=== PATIENT | male | born 1975 | race Caucasian/White ===

== ENCOUNTER 2018-10-06 21:05 | Emergency (ER) | payer OTHER ==
[2018-10-06 21:20] VITALS: BP 151/100
[2018-10-06] MEDS ORDERED: Sodium Chloride 0.9% 10 ML Syringe FLUSH PRN (21:41)
[2018-10-06] MEDS ORDERED: Sodium Chloride 0.9% 1,000 ML IV STA (21:41)
[2018-10-06] MEDS ORDERED: Iopamidol 612 MG/ML 100 ML Bottle IVPUSH ONE (22:49)
--- NOTE | 2018-10-06 22:58 | EDM.PDOC ---
ED HPI GENERAL MEDICAL PROBLEM - General Chief Complaint: Abdominal Pain Stated Complaint: LOWER ABDOMINAL PAIN CENTER ELEVATED HEART RATE Time Seen by Provider: 10/06/18 21:26 Source of Information: Reports: Patient History Limitations: Reports: No Limitations - History of Present Illness INITIAL COMMENTS - FREE TEXT/NARRATIVE: The patient presents with lower abdominal pain. The pain is sharp. He also has some pain with urination and frequency. He has no nausea, vomiting or diarrhea. He has no fever, chills, cough, chest pain or shortness of breath. He still has his gallbladder and appendix. This pain started today. He does not have much of an appetite but he can eat and drink. Onset: Gradual Duration: Hour(s): Location: Reports: Abdomen Quality: Reports: Sharp Severity: Moderate Improves with: Reports: None Worsens with: Reports: None Associated Symptoms: Denies: Chest Pain, Cough, Fever/Chills, Headaches, Nausea/ Vomiting, Shortness of Breath lower mid abdomen Pain Score (Numeric/FACES): 3 - Related Data Allergies Allergy/AdvReac Type Severity Reaction Status Date / Time codeine Allergy Other Verified 10/06/18 21:20 Penicillins Allergy Other Verified 10/06/18 21:20 venom-wasp [wasp venom] Allergy Other Verified 10/06/18 21:20 Home Meds: Home Meds Sertraline [Zoloft] 100 mg PO DAILY 03/01/16 [History] Ciprofloxacin [Ciprofloxacin HCl] 500 mg PO BID #14 tab 10/06/18 [Rx] EPINEPHrine [Epipen 2-Fuad] 1 unit IM ASDIRECTED PRN 10/06/18 [History] metroNIDAZOLE [Flagyl] 500 mg PO Q8H #21 tab 10/06/18 [Rx] Past Medical History - Past Health History Medical/Surgical History: Denies Medical/Surgical History Psychiatric History: Reports: Anxiety - Past Surgical History HEENT Surgical History: Reports: Oral Surgery Social & Family History - Family History Family Medical History: Noncontributory - Tobacco Use Smoking Status *Q: Light Tobacco Smoker Years of Tobacco use: 12 Packs/Tins Daily: 0.1 - Caffeine Use Caffeine Use: Reports: Coffee - Recreational Drug Use Recreational Drug Use: No - Living Situation & Occupation Living situation: Reports: , with Family Occupation: Employed ED ROS GENERAL - Review of Systems Review Of Systems: See Below Constitutional: Reports: No Symptoms HEENT: Reports: No Symptoms Respiratory: Reports: No Symptoms Cardiovascular: Reports: No Symptoms Endocrine: Reports: No Symptoms GI/Abdominal: Reports: Abdominal Pain. Denies: Diarrhea, Nausea, Vomiting : Reports: Dysuria, Frequency ED EXAM, GI/ABD - Physical Exam Exam: See Below Exam Limited By: No Limitations General Appearance: Alert, No Apparent Distress Ears: Normal External Exam Nose: Normal Inspection Head: Atraumatic, Normocephalic Neck: Normal Inspection Respiratory/Chest: No Respiratory Distress, Lungs Clear, Normal Breath Sounds Cardiovascular: Regular Rate, Rhythm, No Edema, No Murmur GI/Abdominal Exam: Soft, No Organomegaly, No Mass, Tender (Moderate tenderness to the LLQ and suprapubic area) Course - Vital Signs Last Recorded V/S: Last Vital Signs Temp 98 F 10/06/18 21:10 Pulse 115 H 10/06/18 21:10 Resp 18 10/06/18 21:10 BP 151/100 H 10/06/18 21:10 Pulse Ox 96 10/06/18 21:10 - Orders/Labs/Meds Orders: Active Orders 24 hr Category Date Time Status Peripheral IV Care [RC] . DIRECTED Care 10/06/18 21:41 Active Abdomen Pelvis w Cont [CT] Stat Exams 10/06/18 21:41 Taken Sodium Chloride 0.9% [Saline Flush] Med 10/06/18 21:41 Active 10 ml FLUSH ASDIRECTED PRN levoFLOXacin [Levaquin] Med 10/06/18 23:54 Once 500 mg PO ONETIME ONE metroNIDAZOLE [Flagyl] Med 10/06/18 23:54 Once 500 mg PO ONETIME ONE Peripheral IV Insertion Adult [OM.PC] Stat Oth 10/06/18 21:41 Ordered Medication Orders Sodium Chloride (Saline Flush) 10 ml FLUSH ASDIRECTED PRN PRN Reason: Keep Vein Open Last Admin: 10/06/18 21:55 Dose: 10 ml Labs: Laboratory Tests 10/06/18 10/06/18 10/06/18 Range/Units 21:41 21:52 21:52 WBC 11.50 H (4.23-9.07) K/mm3 RBC 5.23 (4.63-6.08) M/mm3 Hgb 16.5 (13.7-17.5) gm/L Hct 46.6 (40.1-51.0) % MCV 89.1 (79.0-92.2) fl MCH 31.5 (25.7-32.2) pg MCHC 35.4 (32.2-35.5) g/dl RDW Std Deviation 39.9 (35.1-43.9) fL Plt Count 213 (163-337) K/mm3 MPV 9.1 L (9.4-12.3) fl Neut % (Auto) 71.9 H (34.0-67.9) % Lymph % (Auto) 18.2 L (21.8-53.1) % [place] % (Auto) 9.1 (5.3-12.2) % Eos % (Auto) 0.3 L (0.8-7.0) Baso % (Auto) 0.2 (0.1-1.2) % Neut # (Auto) 8.27 H (1.78-5.38) K/mm3 Lymph # (Auto) 2.09 (1.32-3.57) K/mm3 [place] # (Auto) 1.05 H (0.30-0.82) K/mm3 Eos # (Auto) 0.04 (0.04-0.54) K/mm3 Baso # (Auto) 0.02 (0.01-0.08) K/mm3 Sodium 140 (136-145) mEq/L Potassium 3.5 (3.5-5.1) mEq/L Chloride 102 (98-107) mEq/L Carbon Dioxide 26 (21-32) mEq/L Anion Gap 15.5 H (5-15) BUN 13 (7-18) mg/dL Creatinine 1.2 (0.7-1.3) mg/dL Est Cr Clr Drug Dosing 95.84 mL/min Estimated GFR (MDRD) > 60 (>60) mL/min BUN/Creatinine Ratio 10.8 L (14-18) Glucose 139 H (74-106) mg/dL Calcium 9.2 (8.5-10.1) mg/dL Total Bilirubin 1.6 H (0.2-1.0) mg/dL AST 22 (15-37) U/L ALT 87 H (16-63) U/L Alkaline Phosphatase 79 (46-116) U/L C-Reactive Protein 8.1 H* (<1.0) mg/dL Total Protein 7.7 (6.4-8.2) g/dl Albumin 3.8 (3.4-5.0) g/dl Globulin 3.9 gm/dL Albumin/Globulin Ratio 1.0 (1-2) Lipase 93 (73-393) U/L Urine Color Donna H (Yellow) Urine Appearance Slt cloudy H (Clear) Urine pH 6.5 (5.0-8.0) Ur Specific [place] 1.020 (1.005-1.030) Urine Protein Trace H (Negative) Urine Glucose (UA) Negative (Negative) Urine Ketones Negative (Negative) Urine Occult Blood Negative (Negative) Urine Nitrite Negative (Negative) Urine Bilirubin Negative (Negative) Urine Urobilinogen 1.0 (0.2-1.0) Ur Leukocyte Esterase Negative (Negative) Urine RBC 0-5 (0-5) /hpf Urine WBC 0-5 (0-5) /hpf Ur Epithelial Cells 0-5 (0-5) /hpf Urine Bacteria Few (FEW) /hpf Urine Mucus Moderate H (FEW) /hpf Meds: Medications Generic Name Dose Route Start Last Admin Trade Name Freq PRN Reason Stop Dose Admin Sodium Chloride 10 ml 10/06/18 21:41 10/06/18 21:55 Saline Flush FLUSH 10 ml ASDIRECTED PRN Administration Keep Vein Open Discontinued Medications Generic Name Dose Route Start Last Admin Trade Name Freq PRN Reason Stop Dose Admin Sodium Chloride 1,000 mls @ 1,000 mls/hr 10/06/18 21:41 10/06/18 21:55 Normal Saline IV 10/06/18 22:40 1,000 mls/hr .BOLUS STA Administration Iopamidol 100 ml 10/06/18 22:49 10/06/18 23:03 Isovue-300 (61%) IVPUSH 10/06/18 22:50 100 ml ONETIME ONE Administration - Re-Assessments/Exams Free Text/Narrative Re-Assessment/Exam: 10/06/18 23:11 I ordered an IV NS 1L bolus, labs, UA and a CT of his abdomen and pelvis. 10/06/18 23:47 His WBC was elevated at 11.5. His anion gap was slightly elevated at 15.5. His glucose was elevated at 139. His total bili was elevated at 1.6. His ALT was elevated at 87. His CRP was elevated at 8.1. His lipase is normal. His UA shows no UTI. His CT shows uncomplicated sigmoid colon diverticulitis. He is allergic to penicillin so I will give flagyl and cipro. I will give him a dose of flagyl her and a dose of levaquin. Departure - Departure Time of Disposition: 23:55 Disposition: Home, Self-Care 01 Condition: Good Clinical Impression: Diverticulitis - Discharge Information *PRESCRIPTION DRUG MONITORING PROGRAM REVIEWED*: Not Applicable *COPY OF PRESCRIPTION DRUG MONITORING REPORT IN PATIENT LONNIE: Not Applicable Prescriptions: Ciprofloxacin [Ciprofloxacin HCl] 500 mg PO BID #14 tab metroNIDAZOLE [Flagyl] 500 mg PO Q8H #21 tab Referrals: PCP,None [Primary Care Provider] - Gil Ewing PA-C [Physician Anesthesiology Teacher] - 1 Week Forms: ED Department Discharge Additional Instructions: Take the flagyl 3 times per day for 7 days. Avoid alcohol when taking this medication. It can make you sick. Take the cipro 2 times per day for 7 days. Avoid any heavy lifting or running. This medication can affect tendons. Take tylenol or motrin for pain. Please return if you are worse. - My Orders Last 24 Hours: My Active Orders 10/06/18 21:41 Peripheral IV Care [RC] . DIRECTED Abdomen Pelvis w Cont [CT] Stat Sodium Chloride 0.9% [Saline Flush] 10 ml FLUSH ASDIRECTED PRN Peripheral IV Insertion Adult [OM.PC] Stat 10/06/18 23:54 levoFLOXacin [Levaquin] 500 mg PO ONETIME ONE metroNIDAZOLE [Flagyl] 500 mg PO ONETIME ONE - Assessment/Plan Last 24 Hours: My Active Orders 10/06/18 21:41 Peripheral IV Care [RC] . DIRECTED Abdomen Pelvis w Cont [CT] Stat Sodium Chloride 0.9% [Saline Flush] 10 ml FLUSH ASDIRECTED PRN Peripheral IV Insertion Adult [OM.PC] Stat 10/06/18 23:54 levoFLOXacin [Levaquin] 500 mg PO ONETIME ONE metroNIDAZOLE [Flagyl] 500 mg PO ONETIME ONE
[2018-10-06] MEDS ORDERED: Levofloxacin 500 MG Tab PO ONE (23:54)
[2018-10-06] MEDS ORDERED: metroNIDAZOLE 500 MG Tab PO ONE (23:54)
--- NOTE | 2018-10-07 07:13 | CT ---
CT abdomen and pelvis Technique: Multiple axial sections were obtained from above the dome of the diaphragm inferiorly through the pubic symphysis. Intravenous and oral contrast was utilized. Delayed images were obtained through the bladder. Comparison: No prior abdominal imaging. Findings: Inflammatory change is identified around the sigmoid colon. Diverticuli are seen in this area and findings are felt compatible with diverticulitis. Small portion of the visualized lung bases are clear. Liver shows evidence of fatty infiltration. Spleen appears within normal limits. Adrenal glands show no nodule. Kidneys show symmetric contrast enhancement without hydronephrosis or mass. Pancreas appears within normal limits. Gallbladder contains no calcified gallstones. Aorta shows no aneurysm. No retroperitoneal adenopathy or mesenteric abnormalities are seen. No pelvic mass or adenopathy is seen. Delayed images show contrast within the distal ureters and within the bladder. Bone window settings were reviewed which show mild scattered degenerative change within the spine. Small fat-containing inguinal hernias are seen on both sides. Impression: 1. Findings compatible with sigmoid diverticulitis. 2. Other incidental findings. Diagnostic code #3 I agree with preliminary report from [facility], finalized on 10/07/18, 12:19 AM Central Time
== END 2018-10-07 00:07 | disposition home or self-care (01) ==
LOC: JD.ED 21:05
DX: K57.32 Diverticulitis of large intestine without perforation or abscess without bleeding (principal); F41.9 Anxiety disorder, unspecified; F17.210 Nicotine dependence, cigarettes, uncomplicated; Z98.890 Other specified postprocedural states; Z88.0 Allergy status to penicillin; Z88.1 Allergy status to other antibiotic agents; Z91.030 Bee allergy status
CPT/HCPCS: 36415; 74177; 80053; 81001; 83690; 85025; 86140; 96360; 99284; A9270; J7040; Q9967

== ENCOUNTER 2022-07-10 10:09 | Day surgery (SDC) | payer OTHER ==
[~2022-07-10 10:09] MED LIST: EPINEPHrine 1 MG/ML 30 ML MDV IRR SCH; Lactated Ringers 1,000 ML IV SCH; Lidocaine 1% 2 ML ONE; Lidocaine 1%/Sod Bicarbonate in NS 8.4% 1 ML Syringe IDERM PRN; Ropivacaine 0.5% 5 MG/ML 30 ML SDV ONE; Sodium Chloride 0.9% 10 ML Syringe FLUSH PRN; Sodium Chloride 0.9% 10 ML Syringe FLUSH SCH
[2022-07-10] MEDS ORDERED: Midazolam 1 MG/ML 2 ML SDV ONE (10:18)
[2022-07-10] MEDS ORDERED: fentaNYL 100 MCG/2 ML SDV ONE (10:18)
[2022-07-10] MEDS ORDERED: Propofol 200 MG/20 ML SDV ONE (10:20)
[2022-07-10] MEDS ORDERED: Lidocaine 1% 5 ML VIAL ONE (10:20)
[2022-07-10] MEDS ORDERED: Rocuronium 50 MG/5 ML Vial ONE (10:20)
[2022-07-10] MEDS ORDERED: Clindamycin Phosphate in D5W 900 MG in Premix Bag 1 BAG IV ONE ×2 (10:29)
[2022-07-10] MEDS ORDERED: HYDROmorphone 0.5 MG/0.5 ML Syringe IVPUSH PRN (11:07)
[2022-07-10] MEDS ORDERED: Ondansetron 4 MG/2 ML SDV IVPUSH PRN (11:07)
[2022-07-10] MEDS ORDERED: fentaNYL 100 MCG/2 ML SDV IVPUSH PRN (11:07)
[2022-07-10] MEDS ORDERED: Phenylephrine HCl In 0.9% NaCl 1 MG/10 ML Vial ONE (11:30)
[2022-07-10] MEDS ORDERED: Sugammadex Sodium 200 MG/2 ML VIAL ONE (11:34)
[2022-07-10] MEDS ORDERED: EPINEPHrine 1 MG/ML SDV ONE (11:41)
[2022-07-10] MEDS ORDERED: Dexamethasone 4 MG/ML 5 ML MDV ONE (11:41)
[2022-07-10] MEDS ORDERED: Ondansetron 4 MG/2 ML SDV ONE (11:41)
[2022-07-10] MEDS ORDERED: Lidocaine 1% 2 ML ONE (11:41)
[2022-07-10 17:20] VITALS: BP 116/68; PULSE 70
== END 2022-07-10 15:20 | disposition home or self-care (01) ==
LOC: JD.SDS 10:09
PROVIDERS: ATTEND Orthopaedic Surgery
DX: M75.101 Unspecified rotator cuff tear or rupture of right shoulder, not specified as traumatic (principal); M75.41 Impingement syndrome of right shoulder; M75.81 Other shoulder lesions, right shoulder; F41.1 Generalized anxiety disorder; I10 Essential (primary) hypertension; F17.210 Nicotine dependence, cigarettes, uncomplicated; Z88.0 Allergy status to penicillin; Z88.5 Allergy status to narcotic agent; Z79.899 Other long term (current) drug therapy; Z79.82 Long term (current) use of aspirin; Z96.651 Presence of right artificial knee joint; Z91.038 Other insect allergy status
CPT/HCPCS: 29823; 29826; 29827; 29828; C1713; J0171; J1100; J2250; J2405; J2704; J2795; J3010; J3490; J7120; 01638; 64415; 76942